=== PATIENT | female | born 1975 | race Caucasian/White ===

== ENCOUNTER 2016-10-25 20:46 | Emergency (ER) | payer OTHER ==
[2016-10-25 20:56] VITALS: BP 155/90; PULSE 83; TEMP 97.9; BMI 29.2
[2016-10-25] MEDS ORDERED: ALBUTEROL SO4 2.5/IPRATROPIUM 0.5 INH SOL 3 ML VIAL.NEB. NEB ONE (21:20)
[2016-10-25] MEDS ORDERED: predniSONE 20 MG TABLET (UD) PO ONE (21:20)
[2016-10-25] MEDS ORDERED: AZITHROMYCIN 250 MG TABLET (FP) PO ONE (21:20)
[2016-10-25] MEDS ORDERED: predniSONE 20 MG TABLET (UD) ONE (21:25)
[2016-10-25] MEDS ORDERED: AZITHROMYCIN 1 GM PACKET ONE (21:25)
[2016-10-25] MEDS ORDERED: ALBUTEROL SO4 0.083% IH SOL 2.5 MG/3 ML VIAL.NEB. NEB ONE (21:26)
[2016-10-25] MEDS ORDERED: IPRATROPIUM BR 0.02% 0.5 MG/2.5 ML VIAL.NEB. NEB ONE (21:26)
--- NOTE | 2016-10-25 21:31 | PDOC ---
History of Present Illness - General Chief Complaint: Respiratory Stated Complaint: ASTHMA Time Seen by Provider: 10/25/16 21:11 History Source: Patient - History of Present Illness Timing/Duration: reports: other Associated Symptoms: reports: shortness of breath, wheezing. denies: cough, fever/chills Past History - Past Medical History Allergies/Adverse Reactions: Allergies Allergy/AdvReac Type Severity Reaction Status Date / Time No Known Allergies Allergy Verified 10/25/16 20:53 Home Medications: Ambulatory Orders Prednisone [Deltasone -] 40 mg PO DAILY #8 tablet 10/25/16 Other medical history: denies - Surgical History Cholecystectomy: Yes - Immunization History Immunization Up to Date: Yes - Psycho/Social/Smoking Cessation Hx Anxiety: No Suicidal Ideation: No Smoking History: Current every day smoker Have you smoked in the past 12 months: Yes Number of Cigarettes Smoked Daily: 20 Information on smoking cessation initiated: Yes 'Breaking Loose' booklet given: 10/25/16 Hx Alcohol Use: No Drug/Substance Use Hx: No Substance Use Type: None Review of Systems - Review of Systems Constitutional: No: Chills, Fever Respiratory: Yes: Shortness of Breath, Wheezing. No: Cough : No: Burning, Dysuria, Discharge, Hematuria *Physical Exam - Vital Signs Last Vital Signs Temp Pulse Resp BP Pulse Ox 97.9 F 83 16 155/90 100 10/25/16 20:53 10/25/16 20:53 10/25/16 20:53 10/25/16 20:53 10/25/16 20:53 - Physical Exam General Appearance: Yes: Appropriately Dressed. No: Apparent Distress HEENT: positive: Normal Voice Neck: positive: Supple Respiratory/Chest: positive: Wheezing. negative: Respiratory Distress Cardiovascular: positive: Regular Rate, S1, S2 Gastrointestinal/Abdominal: positive: Soft. negative: Tender Extremity: positive: Normal Inspection Integumentary: positive: Dry, Warm Neurologic: positive: Fully Oriented, Alert, Normal Mood/Affect Medical Decision Making - Medical Decision Making 10/25/16 21:26 41-year-old female history of asthma, no admissions or intubations, uses albuterol pump at home, presenting with wheezing and sob x several days, not relieved by pump. No cough, fever or chills. Patient also requesting empirical treatment for chlamydia, gonorrhea, as is currently a patient in ED and complaining of burning with urination. Patient denies any vaginal discharge, dysuria, abdominal pain, nausea, vomiting at this time but insists on getting treatment prior to waiting for test results. Patient well-appearing and stable with trace wheezing on exam. Will give nebs and pred and reassess. Will treat empirically for STD and sent cultures 10/25/16 21:29 10/25/16 22:01 Pt improved with nebs. No wheezing on reassessment and able to ambulate without shortness of breath. Discharge in stable conditions *DC/Admit/Observation/Transfer Diagnosis at time of Disposition: Asthma exacerbation - Discharge Dispostion Disposition: HOME Condition at time of disposition: Improved - Prescriptions Prescriptions: Prednisone [Deltasone -] 40 mg PO DAILY #8 tablet - Referrals Referrals: STAFF,NOT ON [Primary Care Provider] - - Patient Instructions Printed Discharge Instructions: Asthma -- Adult Additional Instructions: Please call [phone] for test results in 48-72 hrs
[2016-10-26 08:18] LABS: HIV 1 & 2 AB NEGATIVE; HIV 1 AGp24 NEGATIVE
== END 2016-10-25 23:00 | disposition home or self-care (01) ==
LOC: JERFT 20:46
PROC: 3E0F7GC Introduction of Other Therapeutic Substance into Respiratory Tract, Via Natural or Artificial Opening (ICD-10-PCS; principal; 2016-10-25)
PROC: 3E02329 Introduction of Other Anti-infective into Muscle, Percutaneous Approach (ICD-10-PCS; 2016-10-25)
DX: J45.901 Unspecified asthma with (acute) exacerbation (principal); F17.210 Nicotine dependence, cigarettes, uncomplicated
CPT/HCPCS: 36415; 87389; 87491; 87591; 99281-25

== ENCOUNTER 2017-01-13 13:01 | Emergency (ER) | payer OTHER ==
[2017-01-13 13:29] VITALS: BP 146/88; PULSE 90; TEMP 97.7; BMI 29.2
[2017-01-13] MEDS ORDERED: NAPROXEN 500 MG TABLET (FP) ONE (13:58)
[2017-01-13] MEDS ORDERED: CYCLOBENZAPRINE HCL 10 MG TABLET (FP) ONE (13:58)
[2017-01-13] MEDS ORDERED: KETOROLAC TROMETHAMINE 60 MG/2 ML VIAL ONE (13:59)
[2017-01-13] MEDS ORDERED: CYCLOBENZAPRINE HCL 10 MG TABLET (FP) PO ONE (14:00)
[2017-01-13] MEDS ORDERED: KETOROLAC TROMETHAMINE 60 MG/2 ML VIAL IM ONE (14:00)
[2017-01-13] MEDS ORDERED: NAPROXEN 500 MG TABLET (FP) PO ONE (14:01)
--- NOTE | 2017-01-13 14:05 | PDOC ---
History of Present Illness - General Chief Complaint: Injury Stated Complaint: FALL, BACK PAIN Time Seen by Provider: 01/13/17 13:48 History Source: Patient Exam Limitations: No Limitations - History of Present Illness Initial Comments: 01/13/17 14:02 Work this morning, tripped over a cord extending across work area falling to her right side in back. Patient states fell onto right wrist right hip and side. Patient complaints of low back pain with radiation into her right leg, right wrist tenderness, and right elbow contusion. Was no head injury, no LOC 01/13/17 14:05 Occurred: reports: just prior to arrival, this morning, last week Pain Location: reports: back, upper extremity Method of Injury: Yes: fall Associated Symptoms (Fall): denies symptoms Past History - Travel Traveled outside of the country in the last 30 days: No Close contact w/someone who was outside of country & ill: No - Past Medical History Allergies/Adverse Reactions: Allergies Allergy/AdvReac Type Severity Reaction Status Date / Time No Known Allergies Allergy Verified 01/13/17 13:23 Home Medications: Ambulatory Orders Cyclobenzaprine HCl [Flexeril 10 mg] 10 mg PO BID PRN #14 tablet 01/13/17 Naproxen [Naprosyn -] 500 mg PO BID #14 tablet 01/13/17 Asthma: Yes - Surgical History Cholecystectomy: Yes - Immunization History Immunization Up to Date: Yes - Psycho/Social/Smoking Cessation Hx Anxiety: No Suicidal Ideation: No Smoking History: Current every day smoker Have you smoked in the past 12 months: Yes Number of Cigarettes Smoked Daily: 20 Information on smoking cessation initiated: No 'Breaking Loose' booklet given: 10/25/16 Hx Alcohol Use: No Drug/Substance Use Hx: No Substance Use Type: None Trauma Specific PMHX - Complaint Specific PMHX Back Injury: Yes Review of Systems - Review of Systems Able to Perform ROS?: Yes Is the patient limited Citizen [place] proficient: Yes Constitutional: Yes: See HPI. No: Symptoms Reported, Chills, Fever HEENTM: Yes: See HPI. No: Symptoms Reported Respiratory: Yes: See HPI. No: Symptoms reported Musculoskeletal: Yes: Symptoms Reported, See HPI, Back Pain, Muscle Pain, Muscle Weakness (low back primarily right side) Integumentary: Yes: Symptoms Reported, Bruising (right elbow), Other (right wrist tenderness, site of ORIF, no medial or lateral point tenderness to distal radius and ulna, strong flexion and extension to fingers but reproduces pain at wrist joint. No deformity noted) Neurological: Yes: See HPI. No: Symptoms reported All Other Systems: Reviewed and Negative *Physical Exam - Vital Signs Last Vital Signs Temp Pulse Resp BP Pulse Ox 97.7 F 90 18 146/88 98 01/13/17 13:12 01/13/17 13:12 01/13/17 13:12 01/13/17 13:12 01/13/17 13:12 - Physical Exam General Appearance: Yes: Nourished, Appropriately Dressed, Apparent Distress HEENT: positive: FREDY, Normal ENT Inspection, TMs Normal, Pharynx Normal Neck: positive: Supple. negative: Tender Gastrointestinal/Abdominal: positive: Soft Musculoskeletal: positive: Normal Inspection, Decreased Range of Motion, Muscle Spasm. negative: Vertebral Tenderness Extremity: positive: Normal Range of Motion (but pain reproduced with flexion at wrist joint. No deformity, no swelling, no crepitus or step-offs. 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 Will treat with NSAIDs, cyclobenzaprine, and rest *DC/Admit/Observation/Transfer Diagnosis at time of Disposition: Spasm of back muscles - Discharge Dispostion Disposition: HOME Condition at time of disposition: Stable Admit: No - Prescriptions Prescriptions: Cyclobenzaprine HCl [Flexeril 10 mg] 10 mg PO BID PRN #14 tablet PRN Reason: spasm Naproxen [Naprosyn -] 500 mg PO BID #14 tablet - Referrals Referrals: Onesimo Moore MD [Staff Physician] - - Patient Instructions Printed Discharge Instructions: DI for Back Spasm Additional Instructions: Rest, no heavy lifting or exercise until pain is resolved Hot soaks to neck and low back as often as possible/hot showers or Jacuzzis No massage or therapy until spasm is gone Ice to contusions Continue Naprosyn 500 mg tablet every 8 hours for the next 3 days then as needed for pain and swelling Cyclobenzaprine 1-10mg every 8 hours as needed for spasm If not significant improvement within 24 hours with medication and rest regime, followup with private physician for change in medications and /or therapy. - Post Discharge Activity Work/School Note: Back to Work
== END 2017-01-13 14:44 | disposition home or self-care (01) ==
LOC: JER 13:01 → JERFT 13:01
PROC: 3E0233Z Introduction of Anti-inflammatory into Muscle, Percutaneous Approach (ICD-10-PCS; principal; 2017-01-13)
DX: M62.830 Muscle spasm of back (principal); W18.09XA Striking against other object with subsequent fall, initial encounter; Y93.89 Activity, other specified; Y92.218 Other school as the place of occurrence of the external cause; Y99.0 Civilian activity done for income or pay
CPT/HCPCS: 73110-TC-RT; 99281-25

== ENCOUNTER 2017-12-16 17:59 | Emergency (ER) | payer OTHER ==
[2017-12-16] MEDS ORDERED: ACETAMINOPHEN 325 MG TABLET (FP) PO ONE (18:23)
--- NOTE | 2017-12-16 18:23 | PDOC ---
Rapid Medical Evaluation Time Seen by Provider: 12/16/17 18:21 Medical Evaluation: Allergies Allergy/AdvReac Type Severity Reaction Status Date / Time No Known Allergies Allergy Verified 01/13/17 13:23 12/16/17 18:21 I have performed a brief in-person evaluation of this patient. The patient presents with a chief complaint of: burn to R arm at work Pertinent physical exam findings:Exam unremarkable I have ordered the following:nothing The patient will proceed to the ED for further evaluation.
[2017-12-16 18:26] VITALS: BP 119/65; PULSE 80; TEMP 98.1; BMI 29.2
--- NOTE | 2017-12-16 18:29 | PDOC ---
History of Present Illness - General Chief Complaint: Burn Stated Complaint: BURN Time Seen by Provider: 12/16/17 18:21 History Source: Patient - History of Present Illness Timing/Duration: reports: this afternoon Location: reports: extremities Past History - Past Medical History Allergies/Adverse Reactions: Allergies Allergy/AdvReac Type Severity Reaction Status Date / Time No Known Allergies Allergy Verified 12/16/17 18:21 Home Medications: Ambulatory Orders Cyclobenzaprine HCl [Flexeril 10 mg] 10 mg PO BID PRN #14 tablet 01/13/17 Naproxen [Naprosyn -] 500 mg PO BID #14 tablet 01/13/17 Asthma: Yes - Surgical History Cholecystectomy: Yes - Immunization History Immunization Up to Date: Yes - Suicide/Smoking/Psychosocial Hx Smoking History: Current every day smoker Have you smoked in the past 12 months: Yes Number of Cigarettes Smoked Daily: 20 'Breaking Loose' booklet given: 10/25/16 Hx Alcohol Use: No Drug/Substance Use Hx: No Substance Use Type: None Review of Systems - Review of Systems Constitutional: No: Chills, Fever Integumentary: No: Erythema *Physical Exam - Physical Exam General Appearance: Yes: Appropriately Dressed. No: Apparent Distress HEENT: positive: Normal Voice Neck: positive: Supple Extremity: positive: Normal Inspection, Other (no blisters). negative: Tender, Erythema Integumentary: positive: Dry, Warm Neurologic: positive: Fully Oriented, Alert, Normal Mood/Affect Medical Decision Making - Medical Decision Making 12/16/17 18:25 42 yo F, no sig hx, here after "water in a steam table" fell onto R arm today while at work. Unclear from hx if hot water actually spilled on arm. Pt well jamee and stable w/ no findings on exam. M/l 1st degree burn. Dc w/ otc pain meds as needed *DC/Admit/Observation/Transfer Diagnosis at time of Disposition: First degree burn - Discharge Dispostion Disposition: HOME Condition at time of disposition: Good - Referrals - Patient Instructions Printed Discharge Instructions: DI for Hernandez Additional Instructions: Your burn is a first degree burn Take tylenol or motrin as needed for pain - Post Discharge Activity Forms/Work/School Notes: Back to Work
== END 2017-12-16 18:37 | disposition home or self-care (01) ==
LOC: JER 17:59
DX: T22.10XA Burn of first degree of shoulder and upper limb, except wrist and hand, unspecified site, initial encounter (principal); X12.XXXA Contact with other hot fluids, initial encounter; Y93.G9 Activity, other involving cooking and grilling; Y92.218 Other school as the place of occurrence of the external cause; Y99.0 Civilian activity done for income or pay
CPT/HCPCS: 99281-25